=== PATIENT | female | born 1990 | race African-American/Black ===

== ENCOUNTER 2024-08-27 08:54 | Emergency (ER) | payer MEDICAID ==
[~2024-08-27] VITALS: Ht 160 cm; Wt 95.3 kg
[2024-08-27 09:01] VITALS: BP 153/110; TEMP 97.7
[2024-08-27] MEDS ORDERED: CETI1TAB9 PO (09:07)
[2024-08-27 09:14] VITALS: O2SAT 99
== END 2024-08-27 09:14 | disposition home or self-care (01) ==
LOC: ER 09:02
DX: J06.9 Acute upper respiratory infection, unspecified (principal); R05.9 Cough, unspecified; R09.81 Nasal congestion